=== PATIENT | male | born 1970 | race African-American/Black ===

== ENCOUNTER 2017-08-20 15:38 | Emergency (ER) | payer OTHER ==
[~2017-08-20] VITALS: Ht 185.4 cm; Wt 106.6 kg
[~2017-08-20 15:38] MED LIST: AMLODIPINE BESY10 M1 PO; CARVEDILOL6.25 M1 PO; LISINOPRIL-HCT1 EAC1 PO; SIMVASTATIN5 M2 PO
--- NOTE | 2017-08-20 15:41 | ED ANIMAL BITE/WOUND CHECK ---
History of Present Illness General Chief Complaint: Suture Removal/Wound Recheck Stated Complaint: WOUND CHECK Source: patient, old records Exam Limitations: no limitations Vital Signs & Intake/Output Vital Signs & Intake/Output Vital Signs Date Time Temp Pulse Resp B/P B/P Pulse O2 O2 Flow FiO2 Mean Ox Delivery Rate 08/20 1542 96.3 90 16 147/92 98 Room Air Allergies Coded Allergies: No Known Allergies (08/08/17) Reconcile Medications Amlodipine Besylate 10 MG TABLET 1 TAB PO DAILY HEART/BP (Reported) Carvedilol 6.25 MG TABLET 1 TAB PO BID HEART/BP (Reported) Lisinopril/Hydrochlorothiazide (Lisinopril-Hctz 20-25 MG Tab) 20 MG-25 MG TABLET 1 TAB PO DAILY BP (Reported) Simvastatin (Simvastatin*) 5 MG TABLET 1 TAB PO DAILY CHOLESTEROL (Reported) Triage Nurses Notes Reviewed? yes Onset: Abrupt Duration: day(s): (10), better Timing: recent history Injury Environment: home Is Injury an Animal Bite? No Severity: mild No Modifying Factors: none Associated Symptoms: denies HPI: 47-year-old male presents for wound check status post requiring 9 sutures to his left hand 10 days ago. He denies any pain fever chills discharge redness to his skin. No modifying factors or associated symptoms otherwise. He denies any numbness or tingling. (Tawanda Carpenter) Past History Travel History Traveled to [place] past 21 day No Medical History Any Pertinent Medical History? 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 No (Tawanda Carpenter) Review of Systems Review of Systems Constitutional: Reports: see HPI. Comments Review of systems: See HPI, All other systems negative. Constitutional, no chills no fever HEENT: no sore throat no congestion Cardiovascular: No chest pain Skin: no rashes, no change in skin Respiratory: No dyspnea no cough Muscle skeletal: No joint pain, no back pain Neurologic: , no headache Heme/endocrine: No bruising (Tawanda Carpenter) Physical Exam Physical Exam General Appearance: well developed/nourished, no apparent distress, alert, awake , comfortable Comments: Well-developed well-nourished patient in no apparent distress. HEENT: Atraumatic, extraocular motion intact Neck: Supple, FROM Back: FROM Respiratory: No respiratory distress. Patient speaking in full complete sentences. Extremities: [address] noted to the left hand, there is no surrounding erythema or induration full range of motion Neuro: awake, alert, and oriented to person, place and time. There were no obvious focal neurologic abnormalities. Skin: Warm & dry;No appreciable rash on exposed skin Psych: Mood affect normal, normal memory normal judgment. (Tawanda Carpenter) Progress Differential Diagnosis: abscess, cellulitis, joint infection Plan of Care: I discussed with the patient that I believe he requires 3 more days he will return at that time for repeat wound check and possible suture removal at that time as i am concerned that the wound may open if sutures are removed now. he feels comfortable with plan (Tawanda Carpenter) Departure Departure Time of Disposition: 1550 Disposition: HOME OR SELF CARE Condition: Stable Clinical Impression Primary Impression: Encounter for re-check of laceration wound Referrals: Reba Shelton APRN (PCP/Family) Additional Instructions: Please return in 3 days at that time for further wound check and possible suture removal at that time. Departure Forms: Customer Survey General Discharge Information (Tawanda Carpenter) PA/BRAKE LINING MAKER Co-Sign Statement Statement: ED Attending supervision documentation- [] I saw and evaluated the patient. I have also reviewed all the pertinent lab results and diagnostic results. I agree with the findings and the plan of care as documented in the PA's/BRAKE LINING MAKER's documentation. [X] I have reviewed the ED Record and agree with the PA's/BRAKE LINING MAKER's documentation. [] Additions or exceptions (if any) to the PAs/BRAKE LINING MAKER's note and plan are summarized below: [] (Amberly PASTOR,Noel Tse)
[2017-08-20 15:42] VITALS: BP 147/92
== END 2017-08-20 15:57 ==
LOC: ERH 15:38
DX: Z48.01 Encounter for change or removal of surgical wound dressing (principal)
CPT/HCPCS: 99281

== ENCOUNTER 2017-08-24 14:37 | Emergency (ER) | payer OTHER ==
[~2017-08-24] VITALS: Ht 210.8 cm; Wt 106.6 kg
[2017-08-24 14:38] VITALS: BP 146/91
--- NOTE | 2017-08-24 14:58 | ED ANIMAL BITE/WOUND CHECK ---
History of Present Illness General Chief Complaint: Suture Removal/Wound Recheck Stated Complaint: SUTURE REMOVAL Source: patient, old records Exam Limitations: no limitations Vital Signs & Intake/Output Vital Signs & Intake/Output Vital Signs Date Time Temp Pulse Resp B/P B/P Pulse O2 O2 Flow FiO2 Mean Ox Delivery Rate 08/24 1438 97.4 73 18 146/91 99 Room Air Room Air Allergies Coded Allergies: No Known Allergies (08/08/17) Reconcile Medications Amlodipine Besylate 10 MG TABLET 1 TAB PO DAILY HEART/BP (Reported) Carvedilol 6.25 MG TABLET 1 TAB PO BID HEART/BP (Reported) Lisinopril/Hydrochlorothiazide (Lisinopril-Hctz 20-25 MG Tab) 20 MG-25 MG TABLET 1 TAB PO DAILY BP (Reported) Simvastatin (Simvastatin*) 5 MG TABLET 1 TAB PO DAILY CHOLESTEROL (Reported) Triage Note: PT TO ED FOR LEFT HAND SUTURE REMOVAL. Triage Nurses Notes Reviewed? yes Onset: Abrupt Duration: week(s): (2.5), better Timing: single episode today Injury Environment: home Is Injury an Animal Bite? No Severity: mild, moderate No Modifying Factors: none HPI: 47-year-old male past medical history of hypertension presents for suture removal. Patient had sutures placed on August 08 about 2-1/2 weeks ago for a laceration to his left hand. Patient came back for a suture removal/wound check about 3 days ago and was told to treat her elevated come out. Patient has been keeping the area covered and applying topical antibiotic daily. He denies any pain redness swelling or discharge. No fever. No pain with range of motion of his hands. no numbness or tingling Past History Travel History Traveled to [place] past 21 day No Medical History Any Pertinent Medical History? 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 No Review of Systems Review of Systems Constitutional: Reports: no symptoms. EENTM: Reports: no symptoms. Respiratory: Reports: no symptoms. Cardiovascular: Reports: no symptoms. GI: Reports: no symptoms. Genitourinary: Reports: no symptoms. Musculoskeletal: Reports: no symptoms. Skin: Reports: see HPI (lac with sutures). Neurological/Psychological: Reports: no symptoms. Hematologic/Endocrine: Reports: no symptoms. Immunologic/Allergic: Reports: no symptoms. All Other Systems: Reviewed and Negative Physical Exam Physical Exam General Appearance: well developed/nourished, no apparent distress, alert, awake Head: atraumatic, normal appearance Eyes: Bilateral: normal appearance, EOMI. Ears, Nose, Throat: hearing grossly normal Neck: normal inspection Respiratory: no respiratory distress Peripheral Pulses: 2+ radial (R), 2+ radial (L) Extremities: left hand. There is a well approximated laceration with 9 sutures intact to the dorsum of the left hand. No erythema discharge or swelling. The wound edges are slightly macerated and moist. Full range of motion left hand is intact. Cap refill less than 2 seconds Neurovasc supplies intact the left hand Neurologic/Psych: no motor/sensory deficits, awake, alert, oriented x 3, normal gait Skin: intact, normal color, warm/dry Progress Differential Diagnosis: abscess, cellulitis, joint infection, tenosysnovitis Plan of Care: pt seen and evaluated. the lac is approximated and not infected. the wound is macerated. sutures rmeov ed and replaced with steri strips and glue. adivsed pt he needs to stop applying topical antibiotics and leave the area open to air dry. avoid excessive rom of the had, do not get wet. steri strips and glue will come off in a few days on their own. discussed return precautions pt is non- toxic appearing and agrees. Departure Departure Disposition: HOME OR SELF CARE Condition: Stable Clinical Impression Primary Impression: Visit for suture removal Referrals: Reba Shelton APRN (PCP/Family) Additional Instructions: Keep the area clean and dry. Do not apply any more topical antibiotic as that we'll leave the wound wet. Keep the area covered when you are showering or doing work where it might get dirty. Otherwise he wanted leave it open to air dry as much as possible. The Steri-Strips and glue will come off on their own in a few days. Avoid excessive movement of your hand as this may cause the wound open. look out for signs of infection such as redness swelling discharge or pain. Return to the emergency department with any concerns. Departure Forms: Customer Survey General Discharge Information
== END 2017-08-24 15:01 ==
LOC: ERH 14:37
DX: Z48.02 Encounter for removal of sutures (principal)